=== PATIENT | male | born 1965 | race Two or more races ===

== ENCOUNTER 2016-12-22 12:42 | Emergency (ER) | payer OTHER ==
[~2016-12-22] VITALS: Ht 177.8 cm; Wt 72.6 kg
--- NOTE | 2016-12-22 13:15 | Emergency Room Report ---
History of Present Illness General Chief Complaint: Headache Source: Patient Present Illness HPI 51-year-old male presents emergency department complaining of left ear pain and tenderness with intermittent headache x2 months the patient reports that his ear pain is 7/10 in severity and he rates his intermittent headache as bilateral 10 in severity. Patient states headache is typically on the left side of his head and is relieved with Tylenol. Patient denies fevers or chills. Patient states over the course of the last 3 days his ear pain has become more prominent. Patient feels as though her left ear is swollen, he also states he has a difficulty time hearing out of that ear denies ringing in the ears denies trauma. Patient states on occasion he will feel "wet "coming from the ear. he denies neck pain or stiffness. Denies rashes. denies FB sensations. Denies N/V, CP, Palpitations, LOC, AMS, dizziness, Changes in Vision , Sensation, paresthesias, or a sudden severe headache. Allergies: Coded Allergies: No Known Allergies (Unverified , 12/22/16) Patient History Limited by: language barrier - yakut speaking. Past Medical History: see triage record Past Surgical History: none Pertinent Family History: none Immunizations: UTD Reviewed Nursing Documentation: PMH: Agreed, PSxH: Agreed Nursing Documentation-PMH Past Medical History: No Stated History Review of Systems All Other Systems: negative except mentioned in HPI Physical Exam Vital Signs Date Time Temp Pulse Resp B/P Pulse Ox O2 Delivery O2 Flow Rate FiO2 12/22/16 13:02 98.1 62 14 136/87 95 Room Air Sp02 EP Interpretation: reviewed, normal General Appearance: no apparent distress, alert, GCS 15, non-toxic Head: normocephalic, atraumatic Eyes: bilateral eye PERRL, bilateral eye normal inspection ENT: hearing grossly normal, normal pharynx, no angioedema, normal voice, uvula midline, other - Left ear Canal is erythematous and macerated in appearance with creamy/white d/c noted, no TM involvement, no evidence of mastoidits or preauricular LAD on PE. Right Canal and TM are WNL. Neck: full range of motion, supple/symm/no masses Respiratory: chest non-tender, lungs clear, normal breath sounds, speaking full sentences Cardiovascular #1: regular rate, rhythm, no edema Musculoskeletal: back normal, gait/station normal, normal range of motion, non- tender Neurologic: alert, oriented x3, responsive, motor strength/tone normal, sensory intact, speech normal Psychiatric: judgement/insight normal, memory normal, mood/affect normal, no suicidal/homicidal ideation Skin: normal color, no rash, warm/dry, well hydrated Lymphatic: no adenopathy Medical Decision Making PA Attestation Dr. Hughes is my supervising Physician whom patient management has been discussed with. Diagnostic Impression: Primary Impression: Otitis externa of left ear Qualified Codes: H60.502 - Unspecified acute noninfective otitis externa, left ear Additional Impression: Headache Qualified Codes: R51 - Headache ER Course 51-year-old male presents emergency department complaining of left ear pain and tenderness with intermittent headache x2 months the patient reports that his ear pain is 7/10 in severity and he rates his intermittent headache as bilateral 10 in severity. Patient states headache is typically on the left side of his head and is relieved with Tylenol. Patient denies fevers or chills. Patient states over the course of the last 3 days his ear pain has become more prominent. Patient feels as though her left ear is swollen, he also states he has a difficulty time hearing out of that ear denies ringing in the ears denies trauma. Patient states on occasion he will feel "wet "coming from the ear. he denies neck pain or stiffness. Denies rashes. denies FB sensations Ddx considered but are not limited to OM, OE, mastoiditis, TM perforation, FB Vital signs: are WNL, pt. is afebrile H&PE are most consistent with otitis externa of the left hear with intermittent GALLARDO -unknown cause. no neurological symptoms or deficits. ORDERS: none required at this time, the diagnosis is clinical -OTOSCOPY: Left ear Canal is erythematous and macerated in appearance with creamy/white d/c noted, no TM involvement, no evidence of mastoiditis or preauricular LAD on PE. Right Canal and TM are WNL. ED INTERVENTIONS: None required at this time. DISCHARGE: At this time pt. is stable for d/c to home. With Otic ABX. Will provide printed patient care instructions, and any necessary prescriptions. Care plan and follow up instructions have been discussed with the patient prior to discharge. Last Vital Signs Date Time Temp Pulse Resp B/P Pulse Ox O2 Delivery O2 Flow Rate FiO2 12/22/16 13:02 98.1 62 14 136/87 95 Room Air Disposition: HOME, SELF-CARE Condition: Stable Scripts Acetaminophen* (TYLENOL EXTRA STRENGTH*) 500 Mg Tablet 500 MG ORAL Q6H, #30 TAB 0 Refills Prov: Yasmin Shin 12/22/16 Ciprofloxacin Hcl/Dexameth (CIPRODEX OTIC SUSPENSION) 7.5 Ml Drops.susp 5 DROP LEFT EAR TWICE A DAY for 5 Days, #7.5 ML Prov: Yasmin Shin 12/22/16 Patient Instructions: Otitis Externa, General Headache Without Cause Additional Instructions: Take medications as directed. Follow up with PCP in 3 days Return sooner to ED if new symptoms occur, or current symptoms become worse. - Please note that this Emergency Department Report was dictated using [employer] technical specialist technology software, occasionally this can lead to erroneous entry secondary to interpretation by the dictation equipment. Ysamin Shin Dec 22, 2016 13:15
[2016-12-22] MEDS ORDERED: CIPRODEX OTIC7.5 M1 LEFT EAR (13:18)
[2016-12-22] MEDS ORDERED: TYLENOL EXTRA500 MG ORAL (13:18)
[2016-12-22 13:28] VITALS: BP 126/80
== END 2016-12-22 13:29 | disposition home or self-care (01) ==
LOC: EMR 13:10
DX: H60.502 Unspecified acute noninfective otitis externa, left ear (principal); R51 Headache
CPT/HCPCS: 99284